=== PATIENT | male | born 1955 | race Caucasian/White ===

== ENCOUNTER 2017-03-19 17:28 | Inpatient (IN) | payer OTHER ==
[~2017-03-19] VITALS: Ht 185.4 cm; Wt 77.8 kg
[2017-03-19 17:58] LABS: BASOPHILS % 0.5 % (0.0-2.0); EOSINOPHILS # 0.1 10^3/ul (0.0-0.5); EOSINOPHILS % 0.8 % (0.0-7.0); HEMATOCRIT 31.2 % (42.0-52.0); HEMOGLOBIN 11.2 g/dl (14.0-18.0); LYMPHOCYTES # 1.4 10^3/ul (0.8-2.9); LYMPHOCYTES % 15.9 % (15.0-51.0); MEAN CORPUSCULAR HEMOGLOBIN 29.9 pg (29.0-33.0); MEAN CORPUSCULAR HGB CONC 35.9 g/dl (32.0-37.0); MEAN CORPUSCULAR VOLUME 83.4 fl (82.0-101.0); MEAN PLATELET VOLUME 10.3 fl (7.4-10.4); MONOCYTE # 0.8 10^3/ul (0.3-0.9); MONOCYTES % 9.6 % (0.0-11.0); NEUTROPHIL # 6.4 10^3/ul (1.6-7.5); NEUTROPHILS % 72.9 % (39.0-77.0); PLATELET COUNT 190 10^3/UL (140-415); RED BLOOD COUNT 3.74 10^6/ul (4.70-6.10); RED CELL DISTRIBUTION WIDTH 12.2 % (11.5-14.5); WHITE BLOOD COUNT 8.8 10^3/ul (4.8-10.8)
[2017-03-19 18:11] LABS: INR 0.93; PROTIME 12.5 Sec (12.2-14.2)
[2017-03-19 18:19] LABS: ALANINE AMINOTRANSFERASE 32 IU/L (13-69); ALBUMIN 3.9 g/dl (3.3-4.9); ALBUMIN/GLOBULIN RATIO 1.18; ALKALINE PHOSPHATASE 89 IU/L (42-121); ANION GAP 19 (8-16); ASPARTATE AMINO TRANSFERASE 16 IU/L (15-46); BILIRUBIN,INDIRECT 0.3 mg/dl (0-1.1); BILIRUBIN,TOTAL 0.3 mg/dl (0.2-1.3); BLOOD UREA NITROGEN 20 mg/dl (7-20); CALCIUM 9.3 mg/dl (8.4-10.2); CARBON DIOXIDE 31 mmol/L (21-31); CHLORIDE 87 mmol/L (97-110); CREATININE 0.91 mg/dl (0.61-1.24); POTASSIUM 3.8 mmol/L (3.5-5.1); SODIUM 133 mmol/L (135-144); TOTAL PROTEIN 7.2 g/dl (6.1-8.1)
[2017-03-19 18:22] LABS: GLUCOSE 505 mg/dl (70-220)
--- NOTE | 2017-03-19 18:27 | ERA ---
ER Documentation Chief Complaint Date/Time DATE: 03/19/17 TIME: 18:27 Chief Complaint RIGHT LEG SWOLLEN AND WEEPING FOR MORE THAN TWO WEEKS HPI The patient is a 61-year-old male, presenting to the ER because of redness, swelling of the right lower extremity for about 3 weeks, worse for the last couple days. He was seen at at the clinic about a week ago who treated him with Lasix. He went back to the clinic today, and sent back to the ER because of worsening symptoms. He did not see a doctor for about a year. He denies fever, chills, neck pain, chest pain, dyspnea, abdominal pain, dysuria, diarrhea. He smokes a pack a day, denies drinking Past medical history: None Past surgical history: Cataract ROS All systems reviewed and are negative except as per history of present illness. Medications Home Meds No Active Prescriptions or Reported Meds Allergies Allergies: Coded Allergies: No Known Allergy (Unverified , 03/19/17) PMhx/Soc Medical and Surgical Hx: pt denies Medical Hx Anesthesia Reaction: No Hx Neurological Disorder: No Hx Respiratory Disorders: No Hx Cardiac Disorders: No Hx Psychiatric Problems: No Hx Miscellaneous Medical Probl: No Hx Alcohol Use: No Hx Substance Use: No Hx Tobacco Use: Yes (CIGARETTES ) Smoking Status: Current every day smoker Physical Exam Vitals Vital Signs Date Time Temp Pulse Resp B/P Pulse Ox O2 Delivery O2 Flow Rate FiO2 03/19/17 17:40 97.2 94 18 156/77 100 Physical Exam Const: No acute distress. Head: Atraumatic. Eyes: Normal Conjunctiva. ENT: Normal External Ears, Nose and Mouth. Neck: Full range of motion. No meningismus. Resp: Clear to auscultation bilaterally. Cardio: Regular rate and rhythm. Abd: Soft, non distended, normal bowel sounds, non tender. Skin: No petechiae or rashes. Back: No midline or flank tenderness. Ext: Right lower extremity is edematous, mild calf tenderness. There is a large skin lesion with purulent discharge at the distal tibia with surrounding erythema Neur: Awake and alert. No focal deficit Psych: Normal Mood and Affect. Result Diagram: 03/19/17 1740 03/19/17 1740 Results 24 hrs Laboratory Tests Test 03/19/17 17:40 03/19/17 18:03/19/17 19:19 White Blood Count 8.810^3/ul Red Blood Count 3.7410^6/ul Hemoglobin 11.2g/dl Hematocrit 31.2% Mean Corpuscular Volume 83.4fl Mean Corpuscular Hemoglobin 29.9pg Mean Corpuscular Hemoglobin Concent 35.9g/dl Red Cell Distribution Width 12.2% Platelet Count 69250^3/UL Mean Platelet Volume 10.3fl Neutrophils % 72.9% Lymphocytes % 15.9% Monocytes % 9.6% Eosinophils % 0.8% Basophils % 0.5% Nucleated Red Blood Cells % 0.0/100WBC Neutrophils # 6.410^3/ul Lymphocytes # 1.410^3/ul Monocytes # 0.810^3/ul Eosinophils # 0.110^3/ul Basophils # 0.010^3/ul Nucleated Red Blood Cells # 0.010^3/ul Prothrombin Time 12.5Sec Prothrombin Time Ratio 1.0 INR International Normalized Ratio 0.93 Activated Partial Thromboplast Time 27.0Sec Sodium Level 133mmol/L Potassium Level 3.8mmol/L Chloride Level 87mmol/L Carbon Dioxide Level 31mmol/L Anion Gap 19 Blood Urea Nitrogen 20mg/dl Creatinine 0.91mg/dl Glucose Level 505mg/dl Lactic Acid Level 1.8mmol/L Calcium Level 9.3mg/dl Total Bilirubin 0.3mg/dl Direct Bilirubin 0.00mg/dl Indirect Bilirubin 0.3mg/dl Aspartate Amino Transf (AST/SGOT) 16IU/L Alanine Aminotransferase (ALT/SGPT) 32IU/L Alkaline Phosphatase 89IU/L Troponin I < 0.012ng/ml Total Protein 7.2g/dl Albumin 3.9g/dl Globulin 3.30g/dl Albumin/Globulin Ratio 1.18 Urine Color STRAW Urine Clarity CLEAR Urine pH 6.0 Urine Specific [place] 1.029 Urine Ketones NEGATIVEmg/dL Urine Nitrite NEGATIVEmg/dL Urine Bilirubin NEGATIVEmg/dL Urine Urobilinogen NEGATIVEmg/dL Urine Leukocyte Esterase NEGATIVELeu/ul Urine Hemoglobin NEGATIVEmg/dL Urine Glucose 3+mg/dL Urine Total Protein NEGATIVEmg/dl Bedside Glucose 431mg/dL Current Medications Medications (Trade) Dose Ordered Sig/Dashawn Route PRN Reason Start Time Stop Time Status Last Admin Dose Admin Vancomycin HCl 250 ml @ 125 mls/hr ONCE IVPB 03/19/17 19:00 03/19/17 20:59 Levofloxacin/ Dextrose 150 ml @ 100 mls/hr ONCE ONCE IVPB 03/19/17 19:00 03/19/17 20:29 03/19/17 19:14 Sodium Chloride (NS) 1,000 ml @ 1,000 mls/hr Q1H ONCE IV 03/19/17 19:00 03/19/17 19:59 03/19/17 19:00 Insulin Human Lispro (Humalog) 14 unit ONCE STAT SC 03/19/17 18:36 03/19/17 18:38 DC 03/19/17 19:20 Enoxaparin Sodium (Lovenox) 80 mg ONCE SC 03/19/17 19:30 Procedures/[place] [address] Radiology Main Line: [phone] DIAGNOSTIC IMAGING REPORT Patient: RAJ BELL : 1955 Age: 61 Sex: M MR #: [id number] DOS: 03/19/17 1834 Ordering MD: ESME CARRILLO MD Location: E/R Room/Bed: PROCEDURE: US Lower extremity Venous. CLINICAL INDICATION: Right lower extremity swelling. TECHNIQUE: Multiple sonographic images of the right lower extremity deep venous system was obtained utilizing grayscale, color-flow, compressive sonography and doppler imaging with augmentation. The images were reviewed on a PACS workstation. COMPARISON: None. FINDINGS: There is nonocclusive thrombus within the right common femoral vein, femoral vein, and popliteal vein. IMPRESSION: Nonocclusive thrombus within the right common femoral vein, femoral vein, and popliteal vein. These findings were discussed with approximately 07:15 p.m. on March 19, 2017. Physician Bia Date Time Electronically viewed and signed by Physician Bia on 03/19/2017 19 :17 ML/ CC: ESME CARRILLO MD [place] [address] Radiology Main Line: [phone] DIAGNOSTIC IMAGING REPORT Patient: RAJ BELL : 1955 Age: 61 Sex: M MR #: [id number] DOS: 03/19/17 1733 Ordering MD: ESME CARRILLO MD Location: E/R Room/Bed: PROCEDURE: XR Chest. CLINICAL INDICATION: Shortness of breath. Possible sepsis TECHNIQUE: A single portable view of the chest was obtained. COMPARISON: None FINDINGS: The aorta is atherosclerotic. The cardiomediastinal silhouette is otherwise within normal limits. The lungs and pleural spaces are clear. The soft tissues and osseous structures are unremarkable. IMPRESSION: No acute cardiopulmonary disease. RPTAT: HPNM Physician Danette Date Time Electronically viewed and signed by Ramakrishna Honeycutt Physician on 03/19/2017 18 :26 / CC: ESME CARRILLO MD EKG: Read by emergency physician Rate/Rhythm: Normal Sinus Rhythm 100 beats/min QRS, ST, T-waves: No ST elevation, no T inversion, PVC Impression: Normal EKG Urinalysis and right leg venous ultrasounds are pending MEDICAL MAKING DECISION: The patient is a 70-year-old male, presenting with acute right leg cellulitis/dvt, acute new onset diabetes mellitus. He was treated with Levaquin IV and vancomycin IV for acute right leg cellulitis, 1 L normal saline and 14 units of Humalog for acute new onset diabetes mellitus and lovenox 1 mg/kg sc for acute rt leg dvt with good response. The differential diagnoses considered include but are not limited to cellulitis , abscess, necrotizing fasciitis, DKA, HHS Critical Care: Time: 35 minutes excluding all billable procedures. Treatments/Evaluations: Close monitoring and treatment of unstable vital signs, cardiorespiratory, and neurologic status, while maintaining tight balance of fluid, respiratory, and cardiac interventions. Departure Diagnosis: Primary Impression: Cellulitis of right leg Additional Impressions: New onset type 2 diabetes mellitus Anemia Right leg DVT Condition: Stable Comments I discussed the findings with the patient. I discussed the patient with his physician Dr. Painter at 7:30 PM who was made aware of the lab, the treatment, the patient condition. The patient is admitted to ESME WATSON MD Mar 19, 2017 18:27
[2017-03-19 18:31] LABS: TROPONIN-I < 0.012 ng/ml (0.00-0.12)
[2017-03-19] MEDS ORDERED: INSULIN LISPRO 100 UNIT/ML VIAL SC STA (18:36)
[2017-03-19 18:42] LABS: ADD UMIC NO; UR ASCORBIC ACID NEGATIVE (NEGATIVE); UR BILIRUBIN (Dip) NEGATIVE (NEGATIVE); UR BLOOD (Dip) NEGATIVE (NEGATIVE); UR CLARITY CLEAR (CLEAR); UR COLOR STRAW (YELLOW); UR GLUCOSE (Dip) 3+ mg/dL (NEGATIVE); UR KETONES (Dip) NEGATIVE (NEGATIVE); UR LEUKOCYTE ESTERASE (Dip) NEGATIVE Leu/ul (NEGATIVE); UR NITRITE (Dip) NEGATIVE (NEGATIVE); UR SPECIFIC GRAVITY (Dip) 1.029 (1.003-1.030); UR TOTAL PROTEIN (Dip) NEGATIVE (NEGATIVE); UR UROBILINOGEN (Dip) NEGATIVE (NEGATIVE)
[2017-03-19] MEDS ORDERED: SOD CHLORIDE 0.9% 1,000 ML IV ONE (19:00)
[2017-03-19] MEDS ORDERED: VANCOMYCIN 1 GM (PMX) 250 ML IVPB SCH (19:00)
[2017-03-19] MEDS ORDERED: LEVOFLOXACIN 750MG/D5W (PMX) 150 ML IVPB ONE (19:00)
--- NOTE | 2017-03-19 19:18 | RADRPT ---
PROCEDURE: US Lower extremity Venous. CLINICAL INDICATION: Right lower extremity swelling. TECHNIQUE: Multiple sonographic images of the right lower extremity deep venous system was obtaine d utilizing grayscale, color-flow, compressive sonography and doppler imaging with augmentation. Th e images were reviewed on a PACS workstation. COMPARISON: None. FINDINGS: There is nonocclusive thrombus within the right common femoral vein, femoral vein, and popliteal vei n. IMPRESSION: Nonocclusive thrombus within the right common femoral vein, femoral vein, and popliteal vein. These findings were discussed with approximately 07:15 p.m. on March 19, 2017. Physician Bia Date Time Electronically viewed and signed by Jean Jamil Physician on 03/19/2017 19:17 ML/
[2017-03-19] MEDS ORDERED: ENOXAPARIN 80 MG/0.8 ML SYG SC SCH (19:30)
[2017-03-19 20:30] VITALS: TEMP 97.1
[2017-03-19 21:39] VITALS: BP 142/66; RESP 18
[2017-03-19 21:50] VITALS: Ht 185.4 cm; Wt 77.8 kg
[2017-03-19] MEDS ORDERED: morphine 10 MG INJ IM PRN (22:30)
[2017-03-19] MEDS ORDERED: HYDROCODONE/APAP (5/325) TAB PO PRN (22:30)
[2017-03-19] MEDS ORDERED: INSULIN GLARGINE [LANtus] 3 ML PEN SC ONE (22:30)
[2017-03-19] MEDS ORDERED: VANCOMYCIN IV PER PHARMACY XX SCH (22:30)
[2017-03-19] MEDS ORDERED: ACETAMINOPHEN 325 MG TAB PO PRN (22:30)
[2017-03-19] MEDS ORDERED: ZOLPIDEM 5 MG TAB PO PRN (22:30)
[2017-03-19 22:56] VITALS: BP 125/58; RESP 18
[2017-03-19] MEDS ORDERED: morphine 2 MG INJ IV PRN (23:11)
[2017-03-19] MEDS: PIPER-TAZO 3.375 GM IV (PMX) 100 ML IVPB SCH (23:21)
[2017-03-19] MEDS: SOD CHLORIDE 0.9% 1,000 ML IV SCH (23:22)
[2017-03-19] MEDS ORDERED: COLLAGENASE 30 GM TUBE TOP PRN (23:30)
[2017-03-19] MEDS ORDERED: PENDING SANTYL ORDER FOR WOUND CARE XX PRN (23:30)
[2017-03-20] MEDS: ACCU-CHEK XX SCH (02:00)
[2017-03-20] MEDS ORDERED: ACCU-CHEK XX SCH (02:00)
[2017-03-20] MEDS: VANCOMYCIN 1.25 GM in SOD CHLORIDE 0.9% 250 ML IVPB SCH ×2 (02:11→16:20)
[2017-03-20 02:21] VITALS: BP 111/59; RESP 18
[2017-03-20] MEDS: PIPER-TAZO 3.375 GM IV (PMX) 100 ML IVPB SCH ×4 (05:19→23:38)
[2017-03-20 05:39] LABS: BASOPHIL # 0.1 10^3/ul (0.0-0.1); BASOPHILS % 0.7 % (0.0-2.0); EOSINOPHILS # 0.2 10^3/ul (0.0-0.5); EOSINOPHILS % 2.6 % (0.0-7.0); HEMATOCRIT 30.2 % (42.0-52.0); HEMOGLOBIN 10.6 g/dl (14.0-18.0); LYMPHOCYTES # 1.4 10^3/ul (0.8-2.9); LYMPHOCYTES % 20.4 % (15.0-51.0); MEAN CORPUSCULAR HEMOGLOBIN 29.1 pg (29.0-33.0); MEAN CORPUSCULAR HGB CONC 35.1 g/dl (32.0-37.0); MEAN PLATELET VOLUME 10.6 fl (7.4-10.4); MONOCYTE # 0.7 10^3/ul (0.3-0.9); MONOCYTES % 9.4 % (0.0-11.0); NEUTROPHIL # 4.7 10^3/ul (1.6-7.5); NEUTROPHILS % 66.5 % (39.0-77.0); PLATELET COUNT 186 10^3/UL (140-415); RED BLOOD COUNT 3.64 10^6/ul (4.70-6.10); RED CELL DISTRIBUTION WIDTH 12.4 % (11.5-14.5); WHITE BLOOD COUNT 7.1 10^3/ul (4.8-10.8)
--- NOTE | 2017-03-20 06:19 | HP ---
DATE OF ADMISSION: 03/19/2017 CHIEF COMPLAINT: Right leg pain, redness and swelling. HISTORY OF PRESENT ILLNESS: The patient is a 61-year-old gentleman with no significant past medical history who came to ER with increasing right leg swelling, redness and pain for the last couple of days. The patient reported that he was seen in the clinic recently and was given a diuretic, at that time he only had the swelling, but now he also has redness. There was a small open wound in the right leg. The patient denies any chest pain. No short of breath. No reported headache or syncope. No history of palpitation, dizziness or syncope. No history of focal weakness. The patient is a heavy smoker and has been smoking for more than four decades and smokes anywhere between 1 to 1-1/2 packs per day. No history of alcohol abuse. The patient was seen in ER and was noted to have right leg cellulitis. The patient also underwent a venous Doppler which revealed a thrombosis of the right common femoral vein, femoral and popliteal vein. Chest x-ray was unremarkable. The patient had a lab evaluation done in the ER which revealed the blood sugar to be 505. The patient was not acidotic and had a bicarbonate of 31. Troponin was negative. The patient was not aware of his diagnosis of diabetes. PAST MEDICAL/SURGICAL HISTORY: [____]. SOCIAL HISTORY: An approximately 60 pack-year history of smoking. No significant alcohol abuse. FAMILY HISTORY: Noncontributory. MEDICATIONS: Prior to admission none. PHYSICAL EXAMINATION: GENERAL: The patient is conscious, awake, alert. VITAL SIGNS: In the ER, temperature 97.1, pulse 98, respiration 16, blood pressure 129/62, O2 saturation 100 percent on room air. HEENT: TMs normal. Oropharynx clear. NECK: Supple. No thyromegaly. CHEST: Fairly clear. CARDIAC: Heart sounds normal. No murmur. ABDOMEN: Soft and nontender. Bowel sounds present. EXTREMITIES: Left leg has no edema. Right leg has swelling and redness and mild local pain and superficial wound. No clubbing or cyanosis. NEUROLOGIC: The patient is awake, alert, fairly oriented with no gross focal deficits although there was a definite atrophy of the small muscles of the hands and feet indicating diabetic polyneuropathy. LABORATORY DATA: Sodium 133, potassium 3.8, BUN 20, creatinine 0.9, glucose 505, bicarbonate 31, WBC 8.8, hemoglobin 9.2, platelet count 190,000 [____]. IMPRESSION: 1. Right leg cellulitis. 2. Right lower extremity deep venous thombosis. 3. New onset of diabetes. 4. [____] diabetic polyneuropathy. PLAN: The patient admitted on the medical floor. The patient was started on a diabetic diet and was started on Lantus as well as pre meal insulin, in addition to sliding scale. We will obtain hemoglobin A1c. We will also obtain lipid panel. The patient was started on Lovenox for DVT, and IV Vanco and Zosyn for the cellulitis. We will obtain wound cultures. Also the patient was strongly advised to quit smoking. A diabetic education consult will be requested. We will continue to follow. Dictated By: Evan Painter MD /krista/giuseppe /Document#: [id number]
[2017-03-20 06:35] LABS: ALBUMIN 3.4 g/dl (3.3-4.9); ALBUMIN/GLOBULIN RATIO 1.13; BILIRUBIN,INDIRECT 0.3 mg/dl (0-1.1); BILIRUBIN,TOTAL 0.3 mg/dl (0.2-1.3); CALCIUM 8.4 mg/dl (8.4-10.2); CHOL/HDL RATIO 4.6 RATIO; CREATININE 0.74 mg/dl (0.61-1.24); POTASSIUM 3.3 mmol/L (3.5-5.1); TOTAL PROTEIN 6.4 g/dl (6.1-8.1)
[2017-03-20] MEDS: INSULIN ASPART [NOVOLOG] 3 ML PEN SC SCH ×7 (08:01→20:34)
[2017-03-20 08:04] VITALS: BP 142/71; RESP 20
[2017-03-20] MEDS: COLLAGENASE 30 GM TUBE TOP SCH (08:45)
[2017-03-20] MEDS: ENOXAPARIN 30 MG/0.3 ML SYG SC SCH ×2 (08:47→20:33)
[2017-03-20] MEDS ORDERED: GLUCOSE GEL 15 GRAM TUBE PO PRN ×2 (10:00)
[2017-03-20] MEDS ORDERED: GLUCAGON 1 MG INJ IM PRN (10:00)
[2017-03-20] MEDS ORDERED: GLUCOSE GEL 15 GRAM TUBE BUCCAL PRN (10:00)
[2017-03-20] MEDS ORDERED: DEXTROSE 50% 50 ML SYRINGE IV PRN ×2 (10:00)
[2017-03-20] MEDS ORDERED: POTASSIUM CHLORIDE (SR) 20 MEQ TAB PO STA (10:14)
[2017-03-20] MEDS: SOD CHLORIDE 0.9% 1,000 ML IV SCH (12:05)
--- NOTE | 2017-03-20 13:16 | PN ---
Date/Time of Note Date/Time of Note DATE: 03/20/17 TIME: 13:15 Assessment/Plan VTE Prophylaxis VTE Prophylaxis Intervention: other Lines/Catheters [facility] IV Urinary Cath still in place: No Assessment/Plan Chief Complaint/Hosp Course 1. Right leg cellulitis. 2. Right lower extremity deep venous thombosis. 3. New onset of diabetes. 4. Diabetic polyneuropathy. PLAN: The patient admitted on the medical floor. The patient was started on a diabetic diet and was started on Lantus as well as pre meal insulin, in addition to sliding scale. We will obtain hemoglobin A1c. We will also obtain lipid panel. The patient was started on Lovenox for DVT, and IV Vanco and Zosyn for the cellulitis. We will obtain wound cultures. Also the patient was strongly advised to quit smoking. A diabetic education consult will be requested. We will continue to follow. Problems: Subjective 24 Hr Interval Summary Free Text/Dictation Patient has pain in foot Exam/Review of Systems Vital Signs Vitals Vital Signs Date Time Temp Pulse Resp B/P Pulse Ox O2 Delivery O2 Flow Rate FiO2 03/20/17 08:04 97.9 76 20 142/71 98 03/19/17 20:30 Room Air Intake and Output 03/19/17 03/19/17 03/20/17 15:00 23:00 07:00 Intake Total 1300 ml Output Total 200 ml Balance 1100 ml Exam Constitutional: well developed Head: atraumatic, normocephalic Neck: supple Respiratory: clear to auscultation Cardiovascular: regular rate and rhythm Gastrointestinal: non-tender, soft Extremities: normal pulses Results Result Diagram: 03/20/17 0434 03/20/17 0435 Results 24 hrs Laboratory Tests Test 03/19/17 17:40 03/19/17 18:26 03/19/17 19:19 03/19/17 19:30 White Blood Count 8.8 Red Blood Count 3.74 L Hemoglobin 11.2 L Hematocrit 31.2 L Mean Corpuscular Volume 83.4 Mean Corpuscular Hemoglobin 29.9 Mean Corpuscular Hemoglobin Concent 35.9 Red Cell Distribution Width 12.2 Platelet Count 190 Mean Platelet Volume 10.3 Neutrophils % 72.9 Lymphocytes % 15.9 Monocytes % 9.6 Eosinophils % 0.8 Basophils % 0.5 Nucleated Red Blood Cells % 0.0 Neutrophils # 6.4 Lymphocytes # 1.4 Monocytes # 0.8 Eosinophils # 0.1 Basophils # 0.0 Nucleated Red Blood Cells # 0.0 Prothrombin Time 12.5 Prothrombin Time Ratio 1.0 INR International Normalized Ratio 0.93 Activated Partial Thromboplast Time 27.0 Sodium Level 133 L Potassium Level 3.8 Chloride Level 87 L Carbon Dioxide Level 31 Anion Gap 19 H Blood Urea Nitrogen 20 Creatinine 0.91 Glucose Level 505 *H Lactic Acid Level 1.8 1.5 Calcium Level 9.3 Total Bilirubin 0.3 Direct Bilirubin 0.00 Indirect Bilirubin 0.3 Aspartate Amino Transf (AST/SGOT) 16 Alanine Aminotransferase (ALT/SGPT) 32 Alkaline Phosphatase 89 Troponin I < 0.012 Total Protein 7.2 Albumin 3.9 Globulin 3.30 H Albumin/Globulin Ratio 1.18 Urine Color STRAW Urine Clarity CLEAR Urine pH 6.0 Urine Specific [place] 1.029 Urine Ketones NEGATIVE Urine Nitrite NEGATIVE Urine Bilirubin NEGATIVE Urine Urobilinogen NEGATIVE Urine Leukocyte Esterase NEGATIVE Urine Hemoglobin NEGATIVE Urine Glucose 3+ H Urine Total Protein NEGATIVE Bedside Glucose 431 *H Test 03/19/17 20:25 03/19/17 21:30 03/19/17 22:14 03/19/17 23:57 Bedside Glucose 338 H 156 127 Lactic Acid Level 2.2 *H Test 03/20/17 04:34 03/20/17 04:35 03/20/17 05:55 03/20/17 07:58 White Blood Count 7.1 Red Blood Count 3.64 L Hemoglobin 10.6 L Hematocrit 30.2 L Mean Corpuscular Volume 83.0 Mean Corpuscular Hemoglobin 29.1 Mean Corpuscular Hemoglobin Concent 35.1 Red Cell Distribution Width 12.4 Platelet Count 186 Mean Platelet Volume 10.6 H Neutrophils % 66.5 Lymphocytes % 20.4 Monocytes % 9.4 Eosinophils % 2.6 Basophils % 0.7 Nucleated Red Blood Cells % 0.0 Neutrophils # 4.7 Lymphocytes # 1.4 Monocytes # 0.7 Eosinophils # 0.2 Basophils # 0.1 Nucleated Red Blood Cells # 0.0 Hemoglobin A1c 13.6 H Sodium Level 141 Potassium Level 3.3 L Chloride Level 100 # Carbon Dioxide Level 29 Anion Gap 15 Blood Urea Nitrogen 13 Creatinine 0.74 Glucose Level 161 # Calcium Level 8.4 Total Bilirubin 0.3 Direct Bilirubin 0.00 Indirect Bilirubin 0.3 Aspartate Amino Transf (AST/SGOT) 15 Alanine Aminotransferase (ALT/SGPT) 22 Alkaline Phosphatase 64 Total Protein 6.4 Albumin 3.4 Globulin 3.00 Albumin/Globulin Ratio 1.13 Triglycerides Level 77 Cholesterol Level 107 LDL Cholesterol, Calculated 69 HDL Cholesterol 23 L Cholesterol/HDL Ratio 4.6 Lactic Acid Level 0.9 Bedside Glucose 194 Test 03/20/17 11:59 Bedside Glucose 197 Medications Medications Current Medications Piperacillin Sod/ Tazobactam Sod 100 ml @ 200 mls/hr Q6 IVPB Last administered on 03/20/17 12:13; Admin Dose 200 MLS/HR; Start 03/20/17 at 00:00 Sodium Chloride (NS) 1,000 ml @ 75 mls/hr [id number] IV Last administered on 03/20 12:05; Admin Dose 75 MLS/HR; Start 03/19/17 at 22:30 Insulin Glargine (Lantus) 18 unit DAILY@18 SC ; Start 03/20/17 at 18:00 Diagnostic Test (Pha) (Accu-Chek) 1 ea 02 XX ; Start 03/20/17 at 02:00 Enoxaparin Sodium (Lovenox) 30 mg BID SC Last administered on 03/20/17 08:47; Admin Dose 30 MG; Start 03/20/17 at 09:00 Acetaminophen (Tylenol Tab) 650 mg Q4H PRN PO PAIN AND OR ELEVATED TEMP; Start 03/19/17 at 22:30 Acetaminophen/ Hydrocodone Bitart ([place] (5/325)) 1 tab Q4H PRN PO PAIN; Start 03/19/17 at 22:30 Zolpidem Tartrate 5 mg 5 mg HS PRN PO INSOMNIA; Start 03/19/17 at 22:30 Vancomycin HCl/ Sodium Chloride (Vancocin/NS) 250 ml @ 83.333 mls/ hr Q12H IVPB Last administered on 03/20/17 02:11; Admin Dose 83.333 MLS/HR; Start at 03:00 Morphine Sulfate (morphine) 2 mg Q4H PRN IV PAIN; Start 03/19/17 at 23:11 Miscellaneous Information (Pending [facility] Order For Wound Care) This patient ward... PRN PRN XX WOUND CARE; Start 03/19/17 at 23:30 Collagenase (Santyl) 1 applic DAILY TOP Last administered on 03/20/17 08:45; Admin Dose 1 APPLIC; Start 03/20/17 at 09:00 Collagenase (Santyl) 1 applic PRN PRN TOP WOUND CARE Last administered on t 23:59; Admin Dose 1 APPLIC; Start 03/19/17 at 23:30 Miscellaneous Information 1 ea NOTE XX ; Start 03/20/17 at 10:00 Glucose (Glutose) 15 gm Q15M PRN PO DECREASED GLUCOSE; Start 03/20/17 at 10:00 Glucose (Glutose) 22.5 gm Q15M PRN PO DECREASED GLUCOSE; Start 03/20/17 at 10: 00 Dextrose (D50w Syringe) 25 ml Q15M PRN IV DECREASED GLUCOSE; Start 03/20/17 at 10:00 Dextrose (D50w Syringe) 50 ml Q15M PRN IV DECREASED GLUCOSE; Start 03/20/17 at 10:00 Glucagon (Glucagen) 1 mg Q15M PRN IM DECREASED GLUCOSE; Start 03/20/17 at 10:00 Glucose (Glutose) 15 gm Q15M PRN BUCCAL DECREASED GLUCOSE; Start 03/20/17 at 10 :00 MARIANA HOLLINS Mar 20, 2017 13:16
[2017-03-20 14:00] VITALS: BP 177/79; RESP 18
[2017-03-20] MEDS ORDERED: INSULIN GLARGINE [LANtus] 3 ML PEN SC SCH (18:00)
[2017-03-20] MEDS ORDERED: INSULIN ASPART [NOVOLOG] 3 ML PEN SC SCH (18:05)
[2017-03-20 20:25] VITALS: BP 123/58; RESP 18
[2017-03-20] MEDS: INSULIN GLARGINE [LANtus] 3 ML PEN SC SCH (20:34)
[2017-03-21] MEDS: SOD CHLORIDE 0.9% 1,000 ML IV SCH ×2 (01:10→12:12)
[2017-03-21] MEDS: ACCU-CHEK XX SCH (01:41)
[2017-03-21] MEDS ORDERED: ACCU-CHEK XX SCH ×2 (02:00)
[2017-03-21] MEDS: VANCOMYCIN 1.25 GM in SOD CHLORIDE 0.9% 250 ML IVPB SCH (02:05)
[2017-03-21 02:48] VITALS: BP 116/64; RESP 16
[2017-03-21 02:49] VITALS: BP 135/64; RESP 18
[2017-03-21] MEDS: PIPER-TAZO 3.375 GM IV (PMX) 100 ML IVPB SCH ×3 (05:36→17:42)
[2017-03-21] MEDS: INSULIN ASPART [NOVOLOG] 3 ML PEN SC SCH ×7 (07:35→20:36)
[2017-03-21 08:00] VITALS: BP 150/80; RESP 18
[2017-03-21] MEDS: ENOXAPARIN 30 MG/0.3 ML SYG SC SCH ×2 (08:38→20:36)
[2017-03-21] MEDS: SILVER SULFADIAZINE 1% 25 GM CR TOP SCH (08:38)
[2017-03-21] MEDS: COLLAGENASE 30 GM TUBE TOP SCH (08:43)
[2017-03-21 14:00] VITALS: BP 144/75; RESP 18
--- NOTE | 2017-03-21 14:04 | PN ---
Date/Time of Note Date/Time of Note DATE: 03/21/17 TIME: 14:04 Assessment/Plan VTE Prophylaxis VTE Prophylaxis Intervention: other Lines/Catheters [facility] Peripheral IV Urinary Cath still in place: No Assessment/Plan Chief Complaint/Hosp Course 1. Right leg cellulitis. 2. Right lower extremity deep venous thombosis. 3. New onset of diabetes. 4. Diabetic polyneuropathy. PLAN: The patient admitted on the medical floor. The patient was started on a diabetic diet and was started on Lantus as well as pre meal insulin, in addition to sliding scale. We will obtain hemoglobin A1c. We will also obtain lipid panel. The patient was started on Lovenox for DVT, and IV Vanco and Zosyn for the cellulitis. We will obtain wound cultures. Also the patient was strongly advised to quit smoking. A diabetic education consult will be requested. We will continue to follow. Problems: Subjective 24 Hr Interval Summary Free Text/Dictation Patient feels better but nurse notes patient has poor oral intake Exam/Review of Systems Vital Signs Vitals Vital Signs Date Time Temp Pulse Resp B/P Pulse Ox O2 Delivery O2 Flow Rate FiO2 03/21/17 08:00 98.6 76 18 150/80 96 03/19/17 20:30 Room Air Intake and Output 03/20/17 03/20/17 03/21/17 15:00 23:00 07:00 Intake Total 850 ml 1625 ml 1315 ml Output Total 1350 ml 850 ml Balance 850 ml 275 ml 465 ml Exam Constitutional: well developed Head: atraumatic, normocephalic Neck: supple Respiratory: diminished breath sounds Cardiovascular: regular rate and rhythm Gastrointestinal: non-tender, soft Extremities: normal pulses Results Result Diagram: 03/20/17 0434 03/20/17 0435 Results 24 hrs Laboratory Tests Test 03/20/17 17:36 03/20/17 20:28 03/21/17 07:45 03/21/17 12:04 Bedside Glucose 149 165 135 141 Medications Medications Current Medications Piperacillin Sod/ Tazobactam Sod 100 ml @ 200 mls/hr Q6 IVPB Last administered on 03/21/17t 12:12; Admin Dose 200 MLS/HR; Start 03/20/17 at 00:00 Sodium Chloride (NS) 1,000 ml @ 75 mls/hr [id number] IV Last administered on 03/21 12:12; Admin Dose 75 MLS/HR; Start 03/19/17 at 22:30 Diagnostic Test (Pha) (Accu-Chek) 1 ea 02 XX ; Start 03/20/17 at 02:00 Enoxaparin Sodium (Lovenox) 30 mg BID SC Last administered on 03/21/17 08:38; Admin Dose 30 MG; Start 03/20/17 at 09:00 Acetaminophen (Tylenol Tab) 650 mg Q4H PRN PO PAIN AND OR ELEVATED TEMP; Start 03/19/17 at 22:30 Acetaminophen/ Hydrocodone Bitart ([place] (5/325)) 1 tab Q4H PRN PO PAIN; Start 03/19/17 at 22:30 Zolpidem Tartrate 5 mg 5 mg HS PRN PO INSOMNIA; Start 03/19/17 at 22:30 Vancomycin HCl/ Sodium Chloride (Vancocin/NS) 250 ml @ 83.333 mls/ hr Q12H IVPB Last administered on 03/21/17 02:05; Admin Dose 83.333 MLS/HR; Start at 03:00 Morphine Sulfate (morphine) 2 mg Q4H PRN IV PAIN; Start 03/19/17 at 23:11 Miscellaneous Information (Pending Santyl Order For Wound Care) This patient ward... PRN PRN XX WOUND CARE; Start 03/19/17 at 23:30 Collagenase (Santyl) 1 applic DAILY TOP Last administered on 03/21/17 08:43; Admin Dose 1 APPLIC; Start 03/20/17 at 09:00 Collagenase (Santyl) 1 applic PRN PRN TOP WOUND CARE Last administered on 23:59; Admin Dose 1 APPLIC; Start 03/19/17 at 23:30 Miscellaneous Information 1 ea NOTE XX ; Start 03/20/17 at 10:00 Glucose (Glutose) 15 gm Q15M PRN PO DECREASED GLUCOSE; Start 03/20/17 at 10:00 Glucose (Glutose) 22.5 gm Q15M PRN PO DECREASED GLUCOSE; Start 03/20/17 at 10: 00 Dextrose (D50w Syringe) 25 ml Q15M PRN IV DECREASED GLUCOSE; Start 03/20/17 at 10:00 Dextrose (D50w Syringe) 50 ml Q15M PRN IV DECREASED GLUCOSE; Start 03/20/17 at 10:00 Glucagon (Glucagen) 1 mg Q15M PRN IM DECREASED GLUCOSE; Start 03/20/17 at 10:00 Glucose (Glutose) 15 gm Q15M PRN BUCCAL DECREASED GLUCOSE; Start 03/20/17 at 10 :00 Silver Sulfadiazine (Thermazene 1% 25 Gm) 1 applic DAILY TOP Last administered on 03/21/17 08:38; Admin Dose 1 APPLIC; Start 03/21/17 at 09:00 Insulin Glargine (Lantus) 12 unit DAILY@20 SC Last administered on 03/20/17 20 :34; Admin Dose 12 UNIT; Start 03/20/17 at 20:00 MARIANA HOLLINS Mar 21, 2017 14:04
[2017-03-21] MEDS ORDERED: MAGNESIUM HYDROXIDE 30ML CUP PO PRN (15:30)
[2017-03-21] MEDS: INSULIN GLARGINE [LANtus] 3 ML PEN SC SCH (20:37)
[2017-03-21 21:26] VITALS: BP 155/69; RESP 18
[2017-03-21] MEDS: VANCOMYCIN 750 MG in SOD CHLORIDE 0.9% 150 ML IVPB SCH (23:00)
[2017-03-22] MEDS: PIPER-TAZO 3.375 GM IV (PMX) 100 ML IVPB SCH ×4 (01:03→17:24)
[2017-03-22] MEDS: ACCU-CHEK XX SCH (01:09)
[2017-03-22 02:53] VITALS: BP 116/56; RESP 18
[2017-03-22] MEDS: SOD CHLORIDE 0.9% 1,000 ML IV SCH ×2 (05:48→17:10)
[2017-03-22 06:33] LABS: BASOPHILS % 0.6 % (0.0-2.0); EOSINOPHILS # 0.1 10^3/ul (0.0-0.5); EOSINOPHILS % 1.7 % (0.0-7.0); HEMATOCRIT 30.3 % (42.0-52.0); HEMOGLOBIN 10.7 g/dl (14.0-18.0); LYMPHOCYTES # 1.3 10^3/ul (0.8-2.9); LYMPHOCYTES % 18.7 % (15.0-51.0); MEAN CORPUSCULAR HEMOGLOBIN 29.3 pg (29.0-33.0); MEAN CORPUSCULAR HGB CONC 35.3 g/dl (32.0-37.0); MEAN PLATELET VOLUME 10.3 fl (7.4-10.4); MONOCYTE # 0.8 10^3/ul (0.3-0.9); MONOCYTES % 11.6 % (0.0-11.0); NEUTROPHIL # 4.7 10^3/ul (1.6-7.5); NEUTROPHILS % 67.1 % (39.0-77.0); PLATELET COUNT 176 10^3/UL (140-415); RED BLOOD COUNT 3.65 10^6/ul (4.70-6.10); RED CELL DISTRIBUTION WIDTH 12.4 % (11.5-14.5); WHITE BLOOD COUNT 7.1 10^3/ul (4.8-10.8)
[2017-03-22 06:57] LABS: CALCIUM 8.1 mg/dl (8.4-10.2); CREATININE 1.38 mg/dl (0.61-1.24); POTASSIUM 3.4 mmol/L (3.5-5.1)
[2017-03-22 08:00] VITALS: BP 140/82; RESP 18
[2017-03-22] MEDS: INSULIN ASPART [NOVOLOG] 3 ML PEN SC SCH ×7 (08:00→20:35)
[2017-03-22] MEDS: ENOXAPARIN 30 MG/0.3 ML SYG SC SCH ×2 (08:14→20:38)
[2017-03-22] MEDS: SILVER SULFADIAZINE 1% 25 GM CR TOP SCH (09:00)
[2017-03-22] MEDS: COLLAGENASE 30 GM TUBE TOP SCH (09:00)
[2017-03-22] MEDS: VANCOMYCIN 750 MG in SOD CHLORIDE 0.9% 150 ML IVPB SCH ×2 (11:11→23:00)
--- NOTE | 2017-03-22 11:44 | PN ---
Date/Time of Note Date/Time of Note DATE: 03/22/17 TIME: 11:44 Assessment/Plan VTE Prophylaxis VTE Prophylaxis Intervention: other Lines/Catheters [facility] Peripheral IV Urinary Cath still in place: No Assessment/Plan Chief Complaint/Hosp Course 1. Right leg cellulitis. 2. Right lower extremity deep venous thombosis. 3. New onset of diabetes. 4. Diabetic polyneuropathy. PLAN: The patient admitted on the medical floor. The patient was started on a diabetic diet and was started on Lantus as well as pre meal insulin, in addition to sliding scale. We will obtain hemoglobin A1c. We will also obtain lipid panel. The patient was started on Lovenox for DVT, and IV Vanco and Zosyn for the cellulitis. We will obtain wound cultures. Also the patient was strongly advised to quit smoking. A diabetic education consult will be requested. We will continue to follow. Problems: Subjective 24 Hr Interval Summary Free Text/Dictation Patient doesn't like the food here Exam/Review of Systems Vital Signs Vitals Vital Signs Date Time Temp Pulse Resp B/P Pulse Ox O2 Delivery O2 Flow Rate FiO2 03/22/17 08:00 98.6 88 18 140/82 96 03/19/17 20:30 Room Air Intake and Output 03/21/17 03/21/17 03/22/17 15:00 23:00 07:00 Intake Total 625 ml 1340 ml 590 ml Output Total 1100 ml 850 ml Balance 625 ml 240 ml -260 ml Exam Constitutional: well developed Head: atraumatic, normocephalic Neck: supple Respiratory: clear to auscultation Cardiovascular: regular rate and rhythm Gastrointestinal: non-tender, soft Extremities: normal pulses Results Result Diagram: 03/22/17 0543 03/22/17 0543 Results 24 hrs Laboratory Tests Test 03/21/17 12:04 03/21/17 13:52 03/21/17 17:24 03/21/17 20:34 Bedside Glucose 141 229 H 198 Vancomycin Level Trough 20.0 Test 03/22/17 01:06 03/22/17 05:43 03/22/17 07:54 Bedside Glucose 124 104 White Blood Count 7.1 Red Blood Count 3.65 L Hemoglobin 10.7 L Hematocrit 30.3 L Mean Corpuscular Volume 83.0 Mean Corpuscular Hemoglobin 29.3 Mean Corpuscular Hemoglobin Concent 35.3 Red Cell Distribution Width 12.4 Platelet Count 176 Mean Platelet Volume 10.3 Neutrophils % 67.1 Lymphocytes % 18.7 Monocytes % 11.6 H Eosinophils % 1.7 Basophils % 0.6 Nucleated Red Blood Cells % 0.0 Neutrophils # 4.7 Lymphocytes # 1.3 Monocytes # 0.8 Eosinophils # 0.1 Basophils # 0.0 Nucleated Red Blood Cells # 0.0 Sodium Level 143 Potassium Level 3.4 L Chloride Level 105 Carbon Dioxide Level 27 Anion Gap 14 Blood Urea Nitrogen 10 Creatinine 1.38 H Glucose Level 86 Calcium Level 8.1 L Medications Medications Current Medications Piperacillin Sod/ Tazobactam Sod 100 ml @ 200 mls/hr Q6 IVPB Last administered on 03/22/17 05:48; Admin Dose 200 MLS/HR; Start 03/20/17 at 00:00 Sodium Chloride (NS) 1,000 ml @ 75 mls/hr [id number] IV Last administered on 03/22 05:48; Admin Dose 75 MLS/HR; Start 03/19/17 at 22:30 Diagnostic Test (Pha) (Accu-Chek) 1 ea 02 XX Last administered on 03/22/17 01: 09; Admin Dose 1 EA; Start 03/20/17 at 02:00 Enoxaparin Sodium (Lovenox) 30 mg BID SC Last administered on 03/22/17 08:14; Admin Dose 30 MG; Start 03/20/17 at 09:00 Acetaminophen (Tylenol Tab) 650 mg Q4H PRN PO PAIN AND OR ELEVATED TEMP; Start 03/19/17 at 22:30 Acetaminophen/ Hydrocodone Bitart ([place] (5/325)) 1 tab Q4H PRN PO PAIN; Start 03/19/17 at 22:30 Zolpidem Tartrate (Ambien) 5 mg HS PRN PO INSOMNIA; Start 03/19/17 at 22:30 Morphine Sulfate (morphine) 2 mg Q4H PRN IV PAIN; Start 03/19/17 at 23:11 Miscellaneous Information (Pending Santyl Order For Wound Care) This patient ward... PRN PRN XX WOUND CARE; Start 03/19/17 at 23:30 Collagenase (Santyl) 1 applic DAILY TOP Last administered on 03/22/17 09:00; Admin Dose 1 APPLIC; Start 03/20/17 at 09:00 Collagenase (Santyl) 1 applic PRN PRN TOP WOUND CARE Last administered on 23:59; Admin Dose 1 APPLIC; Start 03/19/17 at 23:30 Miscellaneous Information 1 ea NOTE XX ; Start 03/20/17 at 10:00 Glucose (Glutose) 15 gm Q15M PRN PO DECREASED GLUCOSE; Start 03/20/17 at 10:00 Glucose (Glutose) 22.5 gm Q15M PRN PO DECREASED GLUCOSE; Start 03/20/17 at 10: 00 Dextrose (D50w Syringe) 25 ml Q15M PRN IV DECREASED GLUCOSE; Start 03/20/17 at 10:00 Dextrose (D50w Syringe) 50 ml Q15M PRN IV DECREASED GLUCOSE; Start 03/20/17 at 10:00 Glucagon (Glucagen) 1 mg Q15M PRN IM DECREASED GLUCOSE; Start 03/20/17 at 10:00 Glucose (Glutose) 15 gm Q15M PRN BUCCAL DECREASED GLUCOSE; Start 03/20/17 at 10 :00 Silver Sulfadiazine (Thermazene 1% 25 Gm) 1 applic DAILY TOP Last administered on 03/22/17 09:00; Admin Dose 1 APPLIC; Start 03/21/17 at 09:00 Insulin Glargine (Lantus) 12 unit DAILY@20 SC Last administered on 03/21/17 20 :37; Admin Dose 12 UNIT; Start 03/20/17 at 20:00 Magnesium Hydroxide 30 ml 30 ml Q6 PRN PO CONSTIPATION; Start 03/21/17 at 15:30 Vancomycin HCl/ Sodium Chloride (Vancocin/NS) 150 ml @ 75 mls/hr Q12H IVPB Last administered on 03/22/17 11:11; Admin Dose 75 MLS/HR; Start 03/21/17 at 23 :00 MARIANA HOLLINS Mar 22, 2017 11:44
[2017-03-22] MEDS ORDERED: POTASSIUM CHLORIDE (SR) 20 MEQ TAB PO STA (11:56)
[2017-03-22 14:00] VITALS: BP_SYST 112; BP_SYST 148; BP_DIAS 75; BP_DIAS 78; RESP 18; RESP 20
[2017-03-22 20:00] VITALS: BP 152/72; RESP 18
[2017-03-22] MEDS: INSULIN GLARGINE [LANtus] 3 ML PEN SC SCH (20:41)
[2017-03-23] MEDS: PIPER-TAZO 3.375 GM IV (PMX) 100 ML IVPB SCH ×5 (01:06→23:44)
[2017-03-23 02:00] VITALS: BP 152/72; RESP 20
[2017-03-23] MEDS: ACCU-CHEK XX SCH ×2 (02:00→23:33)
[2017-03-23] MEDS: SOD CHLORIDE 0.9% 1,000 ML IV SCH ×2 (04:11→19:50)
[2017-03-23 06:27] LABS: CREATININE 1.46 mg/dl (0.61-1.24)
[2017-03-23 08:00] VITALS: BP 145/64; RESP 19
[2017-03-23] MEDS: INSULIN ASPART [NOVOLOG] 3 ML PEN SC SCH ×7 (08:00→20:06)
[2017-03-23] MEDS: ENOXAPARIN 30 MG/0.3 ML SYG SC SCH (08:09)
[2017-03-23] MEDS: VANCOMYCIN 750 MG in SOD CHLORIDE 0.9% 150 ML IVPB SCH (10:30)
[2017-03-23] MEDS: COLLAGENASE 30 GM TUBE TOP SCH (11:27)
[2017-03-23] MEDS: SILVER SULFADIAZINE 1% 25 GM CR TOP SCH (11:27)
--- NOTE | 2017-03-23 12:45 | PN ---
Date/Time of Note Date/Time of Note DATE: 03/23/17 TIME: 12:45 Assessment/Plan VTE Prophylaxis VTE Prophylaxis Intervention: other Lines/Catheters IV Catheter Type (from [facility]): Peripheral IV Urinary Cath still in place: No Assessment/Plan Chief Complaint/Hosp Course 1. Right leg cellulitis. 2. Right lower extremity deep venous thombosis. 3. New onset of diabetes. 4. Diabetic polyneuropathy. PLAN: The patient admitted on the medical floor. The patient was started on a diabetic diet and was started on Lantus as well as pre meal insulin, in addition to sliding scale. We will obtain hemoglobin A1c. We will also obtain lipid panel. The patient was started on Lovenox for DVT, and IV Vanco and Zosyn for the cellulitis. We will obtain wound cultures. Also the patient was strongly advised to quit smoking. A diabetic education consult will be requested. We will continue to follow. Problems: Subjective 24 Hr Interval Summary Free Text/Dictation Patient has no complaints Exam/Review of Systems Vital Signs Vitals Vital Signs Date Time Temp Pulse Resp B/P Pulse Ox O2 Delivery O2 Flow Rate FiO2 03/23/17 08:00 98.0 81 19 145/64 98 03/19/17 20:30 Room Air Intake and Output 03/22/17 03/22/17 03/23/17 15:00 23:00 07:00 Intake Total 250 ml 1400 ml 600 ml Output Total 750 ml 600 ml Balance 250 ml 650 ml 0 ml Exam Constitutional: well developed Head: atraumatic, normocephalic Neck: supple Respiratory: clear to auscultation Cardiovascular: regular rate and rhythm Gastrointestinal: non-tender, soft Extremities: normal pulses Results Result Diagram: 03/22/17 0543 03/23/17 0451 Results 24 hrs Laboratory Tests Test 03/22/17 17:18 03/22/17 20:34 03/22/17 22:13 03/23/17 04:51 Bedside Glucose 190 176 Vancomycin Level Trough 20.0 Blood Urea Nitrogen 10 Creatinine 1.46 H Test 03/23/17 07:45 03/23/17 11:59 Bedside Glucose 108 117 Medications Medications Current Medications Piperacillin Sod/ Tazobactam Sod 100 ml @ 200 mls/hr Q6 IVPB Last administered on 03/23/17t 06:20; Admin Dose 200 MLS/HR; Start 03/20/17 at 00:00 Sodium Chloride (NS) 1,000 ml @ 75 mls/hr [id number] IV Last administered on 03/23 04:11; Admin Dose 75 MLS/HR; Start 03/19/17 at 22:30 Diagnostic Test (Pha) (Accu-Chek) 1 ea 02 XX Last administered on 03/22/17 01: 09; Admin Dose 1 EA; Start 03/20/17 at 02:00 Enoxaparin Sodium (Lovenox) 30 mg BID SC Last administered on 03/23/17 08:09; Admin Dose 30 MG; Start 03/20/17 at 09:00 Acetaminophen (Tylenol Tab) 650 mg Q4H PRN PO PAIN AND OR ELEVATED TEMP; Start 03/19/17 at 22:30 Acetaminophen/ Hydrocodone Bitart ([place] (5/325)) 1 tab Q4H PRN PO PAIN; Start 03/19/17 at 22:30 Zolpidem Tartrate (Ambien) 5 mg HS PRN PO INSOMNIA; Start 03/19/17 at 22:30 Morphine Sulfate (morphine) 2 mg Q4H PRN IV PAIN; Start 03/19/17 at 23:11 Miscellaneous Information (Pending Santyl Order For Wound Care) This patient ward... PRN PRN XX WOUND CARE; Start 03/19/17 at 23:30 Collagenase (Santyl) 1 applic DAILY TOP Last administered on 03/23/17 11:27; Admin Dose 1 APPLIC; Start 03/20/17 at 09:00 Collagenase (Santyl) 1 applic PRN PRN TOP WOUND CARE Last administered on 23:59; Admin Dose 1 APPLIC; Start 03/19/17 at 23:30 Miscellaneous Information 1 ea NOTE XX ; Start 03/20/17 at 10:00 Glucose (Glutose) 15 gm Q15M PRN PO DECREASED GLUCOSE; Start 03/20/17 at 10:00 Glucose (Glutose) 22.5 gm Q15M PRN PO DECREASED GLUCOSE; Start 03/20/17 at 10: 00 Dextrose (D50w Syringe) 25 ml Q15M PRN IV DECREASED GLUCOSE; Start 03/20/17 at 10:00 Dextrose (D50w Syringe) 50 ml Q15M PRN IV DECREASED GLUCOSE; Start 03/20/17 at 10:00 Glucagon (Glucagen) 1 mg Q15M PRN IM DECREASED GLUCOSE; Start 03/20/17 at 10:00 Glucose (Glutose) 15 gm Q15M PRN BUCCAL DECREASED GLUCOSE; Start 03/20/17 at 10 :00 Silver Sulfadiazine (Thermazene 1% 25 Gm) 1 applic DAILY TOP Last administered on 03/23/17 11:27; Admin Dose 1 APPLIC; Start 03/21/17 at 09:00 Insulin Glargine (Lantus) 12 unit DAILY@20 SC Last administered on 03/22/17 20 :41; Admin Dose 12 UNIT; Start 03/20/17 at 20:00 Magnesium Hydroxide 30 ml 30 ml Q6 PRN PO CONSTIPATION; Start 03/21/17 at 15:30 Vancomycin HCl/ Sodium Chloride (Vancocin/NS) 150 ml @ 75 mls/hr Q24H IVPB Last administered on 03/23/17 10:30; Admin Dose 75 MLS/HR; Start 03/23/17 at 11 :00 MARIANA HOLLINS Mar 23, 2017 12:45
[2017-03-23 14:00] VITALS: BP 187/83; RESP 18
[2017-03-23] MEDS: ENOXAPARIN 80 MG/0.8 ML SYG SC SCH (20:02)
[2017-03-23] MEDS: INSULIN GLARGINE [LANtus] 3 ML PEN SC SCH (20:03)
[2017-03-23 20:18] VITALS: BP 174/80; RESP 18
[2017-03-23 20:59] VITALS: BP 156/72; PULSE 88
[2017-03-24 02:33] VITALS: BP 113/56; RESP 17
[2017-03-24] MEDS: SOD CHLORIDE 0.9% 1,000 ML IV SCH ×2 (03:38→23:23)
[2017-03-24] MEDS: PIPER-TAZO 3.375 GM IV (PMX) 100 ML IVPB SCH ×4 (05:46→23:23)
[2017-03-24 06:39] LABS: CREATININE 1.42 mg/dl (0.61-1.24)
[2017-03-24 07:55] VITALS: BP 152/65; RESP 20
[2017-03-24] MEDS: INSULIN ASPART [NOVOLOG] 3 ML PEN SC SCH ×8 (08:00→20:30)
[2017-03-24] MEDS: COLLAGENASE 30 GM TUBE TOP SCH (09:00)
[2017-03-24] MEDS: SILVER SULFADIAZINE 1% 25 GM CR TOP SCH (09:00)
[2017-03-24] MEDS: ENOXAPARIN 80 MG/0.8 ML SYG SC SCH ×2 (09:33→20:30)
[2017-03-24] MEDS: VANCOMYCIN 750 MG in SOD CHLORIDE 0.9% 150 ML IVPB SCH (12:01)
[2017-03-24] MEDS ORDERED: morphine 4 MG/ML VIAL IV PRN (14:30)
[2017-03-24 15:20] VITALS: BP 176/78; RESP 18
[2017-03-24 15:36] VITALS: BP 161/74
--- NOTE | 2017-03-24 15:50 | PN ---
Date/Time of Note Date/Time of Note DATE: 03/24/17 TIME: 15:49 Assessment/Plan VTE Prophylaxis VTE Prophylaxis Intervention: other Lines/Catheters IV [facility] Type (from [facility]): Peripheral IV Urinary Cath still in place: No Assessment/Plan Chief Complaint/Hosp Course 1. Right leg cellulitis. 2. Right lower extremity deep venous thombosis. 3. New onset of diabetes. 4. Diabetic polyneuropathy. PLAN: The patient admitted on the medical floor. The patient was started on a diabetic diet and was started on Lantus as well as pre meal insulin, in addition to sliding scale. We will obtain hemoglobin A1c. We will also obtain lipid panel. The patient was started on Lovenox for DVT, and IV Vanco and Zosyn for the cellulitis. We will obtain wound cultures. Also the patient was strongly advised to quit smoking. A diabetic education consult will be requested. We will continue to follow. Problems: Subjective 24 Hr Interval Summary Free Text/Dictation Patient has no complaints Exam/Review of Systems Vital Signs Vitals Vital Signs Date Time Temp Pulse Resp B/P Pulse Ox O2 Delivery O2 Flow Rate FiO2 03/24/17 15:36 161/74 03/24/17 15:20 98.6 79 18 98 Intake and Output 03/23/17 03/23/17 03/24/17 15:00 23:00 07:00 Intake Total 250 ml 1310 ml 1800 ml Output Total 650 ml 600 ml Balance 250 ml 660 ml 1200 ml Exam Constitutional: well developed Head: atraumatic, normocephalic Neck: supple Respiratory: clear to auscultation Cardiovascular: regular rate and rhythm Gastrointestinal: non-tender, soft Results Result Diagram: 03/22/17 0543 03/24/17 0518 Results 24 hrs Laboratory Tests Test 03/23/17 17:24 03/23/17 19:59 03/24/17 05:18 03/24/17 07:46 Bedside Glucose 172 124 103 Blood Urea Nitrogen 9 Creatinine 1.42 H Test 03/24/17 11:19 Bedside Glucose 158 Medications Medications Current Medications Piperacillin Sod/ Tazobactam Sod 100 ml @ 200 mls/hr Q6 IVPB Last administered on 03/24/17t 13:58; Admin Dose 200 MLS/HR; Start 03/20/17 at 00:00 Sodium Chloride (NS) 1,000 ml @ 75 mls/hr [id number] IV Last administered on 03/24 03:38; Admin Dose 75 MLS/HR; Start 03/19/17 at 22:30 Diagnostic Test (Pha) (Accu-Chek) 1 ea 02 XX Last administered on 03/22/17 01: 09; Admin Dose 1 EA; Start 03/20/17 at 02:00 Acetaminophen (Tylenol Tab) 650 mg Q4H PRN PO PAIN AND OR ELEVATED TEMP; Start 03/19/17 at 22:30 Acetaminophen/ Hydrocodone Bitart ([place] (5/325)) 1 tab Q4H PRN PO PAIN; Start 03/19/17 at 22:30 Zolpidem Tartrate (Ambien) 5 mg HS PRN PO INSOMNIA; Start 03/19/17 at 22:30 Miscellaneous Information (Pending Santyl Order For Wound Care) This patient ward... PRN PRN XX WOUND CARE; Start 03/19/17 at 23:30 Collagenase (Santyl) 1 applic DAILY TOP Last administered on 03/23/17 11:27; Admin Dose 1 APPLIC; Start 03/20/17 at 09:00 Collagenase (Santyl) 1 applic PRN PRN TOP WOUND CARE Last administered on 23:59; Admin Dose 1 APPLIC; Start 03/19/17 at 23:30 Miscellaneous Information 1 ea NOTE XX ; Start 03/20/17 at 10:00 Glucose (Glutose) 15 gm Q15M PRN PO DECREASED GLUCOSE; Start 03/20/17 at 10:00 Glucose (Glutose) 22.5 gm Q15M PRN PO DECREASED GLUCOSE; Start 03/20/17 at 10: 00 Dextrose (D50w Syringe) 25 ml Q15M PRN IV DECREASED GLUCOSE; Start 03/20/17 at 10:00 Dextrose (D50w Syringe) 50 ml Q15M PRN IV DECREASED GLUCOSE; Start 03/20/17 at 10:00 Glucagon (Glucagen) 1 mg Q15M PRN IM DECREASED GLUCOSE; Start 03/20/17 at 10:00 Glucose (Glutose) 15 gm Q15M PRN BUCCAL DECREASED GLUCOSE; Start 03/20/17 at 10 :00 Silver Sulfadiazine (Thermazene 1% 25 Gm) 1 applic DAILY TOP Last administered on 03/23/17 11:27; Admin Dose 1 APPLIC; Start 03/21/17 at 09:00 Insulin Glargine (Lantus) 12 unit DAILY@20 SC Last administered on 03/23/17 20 :03; Admin Dose 12 UNIT; Start 03/20/17 at 20:00 Magnesium Hydroxide 30 ml 30 ml Q6 PRN PO CONSTIPATION; Start 03/21/17 at 15:30 Vancomycin HCl/ Sodium Chloride (Vancocin/NS) 150 ml @ 75 mls/hr Q24H IVPB Last administered on 03/24/17 12:01; Admin Dose 75 MLS/HR; Start 03/23/17 at 11 :00 Enoxaparin Sodium (Lovenox) 80 mg Q12 SC Last administered on 03/24/17 09:33; Admin Dose 80 MG; Start 03/23/17 at 21:00 Morphine Sulfate (morphine) 2 mg Q4H PRN IV PAIN; Start 03/24/17 at 14:30 MARIANA HOLLINS Mar 24, 2017 15:50
[2017-03-24] MEDS: INSULIN GLARGINE [LANtus] 3 ML PEN SC SCH (20:30)
[2017-03-24 21:03] VITALS: BP 165/75; RESP 18
[2017-03-24 23:40] VITALS: BP 176/82; PULSE 75
[2017-03-25] MEDS: ACCU-CHEK XX SCH (01:12)
[2017-03-25 02:53] VITALS: BP 119/57; RESP 18
[2017-03-25] MEDS: PIPER-TAZO 3.375 GM IV (PMX) 100 ML IVPB SCH (06:06)
[2017-03-25 07:25] VITALS: BP 120/60; RESP 16
[2017-03-25] MEDS: INSULIN ASPART [NOVOLOG] 3 ML PEN SC SCH ×2 (07:58→08:46)
[2017-03-25] MEDS: ENOXAPARIN 80 MG/0.8 ML SYG SC SCH (08:47)
[2017-03-25] MEDS: COLLAGENASE 30 GM TUBE TOP SCH (09:00)
[2017-03-25] MEDS: SILVER SULFADIAZINE 1% 25 GM CR TOP SCH (10:15)
--- NOTE | 2017-03-25 13:48 | DS ---
Date/Time of Note Date/Time of Note DATE: 03/25/17 TIME: 13:45 Discharge Summary Admission/Discharge Info Admit Date/Time Mar 19, 2017 at 19:36 Discharge Date/Time Mar 25, 2017 at 11:11 Discharge Diagnosis 1) cellulitis 2) diabetes mellitus Patient Condition: Fair Hx of Present Illness Patient comes in with pain in foot and was found to have cellulitis Hospital Course Patient was found to have right leg cellulitis which was treated with intravenous antibiotics. Patient was found to have high blood sugar and he was covered with insulin. Patient improved with intravenous antibiotics and so was felt to be stable to be discharged with oral antibiotics. Patient will also be sent home with glyburide for diabetes control. Patient is encouraged to follow up with a primary physician. 1. Right leg cellulitis. 2. Right lower extremity deep venous thombosis. 3. New onset of diabetes. 4. Diabetic polyneuropathy. PLAN: The patient admitted on the medical floor. The patient was started on a diabetic diet and was started on Lantus as well as pre meal insulin, in addition to sliding scale. We will obtain hemoglobin A1c. We will also obtain lipid panel. The patient was started on Lovenox for DVT, and IV Vanco and Zosyn for the cellulitis. We will obtain wound cultures. Also the patient was strongly advised to quit smoking. A diabetic education consult will be requested. We will continue to follow. Home Meds No Active Prescriptions or Reported Meds Primary Care Provider [facility] Pending Labs Laboratory Tests Test 03/24/17 17:26 03/24/17 20:28 03/25/17 07:52 Bedside Glucose 131mg/dL (70-220) 156mg/dL (70-220) 92mg/dL (70-220) MARIANA HOLLINS Mar 25, 2017 13:48
== END 2017-03-25 11:11 | disposition home or self-care (01) | DRG 300 ==
LOC: E/R 17:28 → PP2 19:36
PROVIDERS: ADMIT Internal Medicine; ATTEND Internal Medicine
DX: I82.401 Acute embolism and thrombosis of unspecified deep veins of right lower extremity (principal); L03.115 Cellulitis of right lower limb; E11.42 Type 2 diabetes mellitus with diabetic polyneuropathy; D64.9 Anemia, unspecified; F17.210 Nicotine dependence, cigarettes, uncomplicated
CPT/HCPCS: 36415; 71010; 80048; 80053; 80061; 80202; 81003; 82565; 82962; 83036; 83605; 84484; 84520; 85025; 85610; 85730; 87040; 87070; 87086; 93005; 93971; 96365; 96372; 96375; J1650; J1815; J1956; J2543; J3370; J7030; J7050